=== PATIENT | male | born 1965 | race Caucasian/White ===

== ENCOUNTER 2016-10-05 14:27 | Emergency (ER) | payer SELFPAY ==
[~2016-10-05] VITALS: Ht 188 cm; Wt 149.1 kg
[~2016-10-05 14:27] MED LIST: AUGMENTIN875 MG PO; AZITHROMYCIN250 MG1 PO; COMBIVENT200 INHALA IH; HYDROCHLOROTHIA25 MG PO; HYDROCODON-ACE1 EAC7 PO; NAPROSYN500 MG PO; NOHOMEMEDS; PERCOCET 5-3251 EACH PO; PREDNISONE20 MG PO; PROAIR HFA8.5 GM IH; SUBOXONE 8 M1 TABLET SL; SUBOXONE 8 MG-1 EAC2 SL; ZOFRAN ODT4 MG PO
[2016-10-05 15:19] LABS: HEMATOCRIT 47.3 % (38.0-50.0); MCH 28.6 PG (29.0-34.0); MCHC 33.4 G/DL (30.0-36.0); MCV 85.5 FL (86-99); MEAN PLAT.VOLUME 10.4 uM^3 (9.0-12.4); PLATELET COUNT 253 K/uL (156-360); RBC DIS.WIDTH-CV 13.3 % (11.8-14.6); RBC DIS.WIDTH-SD 41.9 % (39-53); RED BLOOD COUNT 5.53 M/uL (4.00-5.50)
[2016-10-05 15:21] LABS: CHLORIDE 105 mEq/L (99-109); POTASSIUM 4.4 mEq/L (3.7-5.4); SODIUM 138 mEq/L (136-147)
[2016-10-05 15:23] LABS: GLUCOSE 108 mg/dL (70-99)
[2016-10-05 15:24] LABS: ANION GAP 7 MEQ/L (2-14)
[2016-10-05 15:25] LABS: TOTAL BILIRUBIN 0.4 mg/dL (0.0-1.0)
[2016-10-05 15:27] LABS: ALKALINE PHOSPHATASE 82 IU/L (3-129); GFR ESTIMATE (CALCULATED) > 59 mL/min/
[2016-10-05 15:28] LABS: ADD MIUA? NO; BILIRUBIN NEGATIVE; BLOOD NEGATIVE; COLOR YELLOW ((YELLOW)); GLUCOSE (STRIP) NEGATIVE; KETONES 5; LEUKOCYTES NEGATIVE; NITRITE NEGATIVE; PROTEIN (STRIP) 30; SPECIFIC GRAVITY 1.019 (1.000-1.030); UCUL ADDED? NO; UROBILINOGEN 0.2 MG/DL (0.2-1.0)
[2016-10-05 15:28] LABS: UREA NITROGEN (BUN) 16 mg/dL (9-23)
[2016-10-05 20:09] VITALS: BP 154/93
== END 2016-10-05 20:10 | disposition home or self-care (01) ==
LOC: EME 14:27
DX: K42.9 Umbilical hernia without obstruction or gangrene (principal); R10.32 Left lower quadrant pain; G89.29 Other chronic pain; F17.200 Nicotine dependence, unspecified, uncomplicated; I10 Essential (primary) hypertension
CPT/HCPCS: 74176; 80053; 81003; 85027; 99281; 99283

== ENCOUNTER 2016-10-26 14:04 | Emergency (ER) | payer SELFPAY ==
[~2016-10-26] VITALS: Ht 188 cm; Wt 149.8 kg
[2016-10-26 15:07] LABS: HEMATOCRIT 44.3 % (38.0-50.0); MCH 28.5 PG (29.0-34.0); MCHC 33.2 G/DL (30.0-36.0); MCV 85.9 FL (86-99); MEAN PLAT.VOLUME 10.5 uM^3 (9.0-12.4); PLATELET COUNT 215 K/uL (156-360); RBC DIS.WIDTH-CV 13.5 % (11.8-14.6); RBC DIS.WIDTH-SD 42.8 % (39-53); RED BLOOD COUNT 5.16 M/uL (4.00-5.50); WHITE BLOOD COUNT 8.6 K/uL (4.1-10.2)
[2016-10-26 15:16] LABS: CHLORIDE 107 mEq/L (99-109); SODIUM 143 mEq/L (136-147)
[2016-10-26 15:18] LABS: GLUCOSE 111 mg/dL (70-99)
[2016-10-26 15:19] LABS: ANION GAP 10 MEQ/L (2-14)
[2016-10-26 15:21] LABS: GFR ESTIMATE (CALCULATED) > 59 mL/min/
[2016-10-26 15:22] LABS: UREA NITROGEN (BUN) 12 mg/dL (9-23)
[2016-10-26 15:28] LABS: TROP-I INTERPRETATION NEGATIVE; TROPONIN-I < 0.01 ng/mL (0.0-0.30)
[2016-10-26] MEDS ORDERED: PREDNISONE20 MG PO (15:38)
[2016-10-26] MEDS ORDERED: VENTOLIN HFA18 GM IH (15:38)
[2016-10-26 15:51] VITALS: BP 158/94
== END 2016-10-26 15:52 | disposition home or self-care (01) ==
LOC: EME 14:04
DX: J45.901 Unspecified asthma with (acute) exacerbation (principal); F17.210 Nicotine dependence, cigarettes, uncomplicated
CPT/HCPCS: 71020; 80048; 84484; 85027; 93005; 94640; 99281; 99283; J7512

== ENCOUNTER 2017-01-26 13:35 | Inpatient (IN) | payer SELFPAY ==
[~2017-01-26] VITALS: Ht 185.4 cm; Wt 149.0 kg
[~2017-01-26 13:35] MED LIST changes: +VENTOLIN HFA18 GM IH
[2017-01-26 16:00] LABS: BASOPHIL COUNT 0.1 K/uL (0-0.1); EOSINOPHIL (%) 0.8 % (0-5); EOSINOPHIL COUNT 0.2 K/uL (0-0.3); HEMATOCRIT 41.8 % (38.0-50.0); IMMATURE GRANULOCYTE (%) 0.4 % (0.0-0.7); IMMATURE GRANULOCYTE COUNT 0.1 K/uL; INSTRUMENT ABS NEUTROPHIL CT 16.1 K/uL; LYMPHOCYTE COUNT 1.3 K/uL (1.0-2.8); MCHC 33.3 G/DL (30.0-36.0); MCV 87.3 FL (86-99); MEAN PLAT.VOLUME 10.5 uM^3 (9.0-12.4); MONOCYTE (%) 7.6 % (3-12); MONOCYTE COUNT 1.5 K/uL (0-0.8); NEUTROPHIL (%) 84.3 % (45-76); NEUTROPHIL COUNT 16.1 K/uL (1.8-6.4); PLATELET COUNT 204 K/uL (156-360); RBC DIS.WIDTH-CV 13.3 % (11.8-14.6); RBC DIS.WIDTH-SD 43.1 % (39-53); RED BLOOD COUNT 4.79 M/uL (4.00-5.50)
[2017-01-26 16:13] LABS: CHLORIDE 105 mEq/L (99-109); POTASSIUM 4.2 mEq/L (3.7-5.4); SODIUM 140 mEq/L (136-147)
[2017-01-26 16:15] LABS: GLUCOSE 102 mg/dL (70-99)
[2017-01-26 16:17] LABS: ANION GAP 9 MEQ/L (2-14); TOTAL BILIRUBIN 0.5 mg/dL (0.0-1.0)
[2017-01-26 16:19] LABS: ALKALINE PHOSPHATASE 79 IU/L (3-129); GFR ESTIMATE (CALCULATED) > 59 mL/min/
[2017-01-26 16:20] LABS: UREA NITROGEN (BUN) 11 mg/dL (9-23)
[2017-01-26 16:22] LABS: LIPASE 17 U/L (1.0-51.0)
[2017-01-26] MEDS ORDERED: ONE-A-DAY MEN'1 EACH PO (18:52)
[2017-01-26] MEDS ORDERED: ADVIL200 MG PO (18:52)
[2017-01-26] MEDS ORDERED: BUPRENORPHINE HC8 MG PO (18:54)
[2017-01-26 21:20] VITALS: BP 184/91
[2017-01-27 00:10] VITALS: BP 143/99
[2017-01-27 08:00] VITALS: BP 160/91
[2017-01-27 14:13] LABS: HEMATOCRIT 40.9 % (38.0-50.0); MCH 28.9 PG (29.0-34.0); MCHC 33.3 G/DL (30.0-36.0); MCV 86.8 FL (86-99); MEAN PLAT.VOLUME 10.5 uM^3 (9.0-12.4); PLATELET COUNT 200 K/uL (156-360); RBC DIS.WIDTH-CV 13.2 % (11.8-14.6); RED BLOOD COUNT 4.71 M/uL (4.00-5.50)
[2017-01-27 14:27] LABS: ANION GAP 5 MEQ/L (2-14); CHLORIDE 106 MEQ/L (99-109); POTASSIUM 3.8 MEQ/L (3.7-5.4); SAMPLE HEMOLYSIS CHECK 0; SAMPLE ICTERIC CHECK 0; SAMPLE LIPEMIA CHECK 0; SODIUM 139 MEQ/L (136-147)
[2017-01-27 14:33] LABS: GFR ESTIMATE (CALCULATED) > 59 mL/min/; GLUCOSE 94 mg/dL (70-99); UREA NITROGEN (BUN) 9 mg/dL (9-23)
[2017-01-27 15:36] VITALS: BP 169/100
[2017-01-27 23:28] VITALS: BP 136/78
[2017-01-28 08:22] VITALS: BP 142/84
[2017-01-28 15:24] VITALS: BP 157/85
[2017-01-28 23:23] VITALS: BP 147/73
[2017-01-29 06:48] VITALS: BP 138/90
[2017-01-29] MEDS ORDERED: NORCO 5/3251 TABLET PO (14:31)
== END 2017-01-29 15:13 | disposition home or self-care (01) | DRG 394 ==
LOC: EME 13:35 → EDOF 17:59 → 5EAST 17:59 → ENRESERV 18:03 → 5EAST 21:07 → ENPENDDIS 01-29 → 5EAST 01-29 15:13
PROVIDERS: Emergency Medicine; Thoracic Surgery (Cardiothoracic Vascular Surgery)
DX: K43.6 Other and unspecified ventral hernia with obstruction, without gangrene (principal); F11.20 Opioid dependence, uncomplicated; I10 Essential (primary) hypertension; F17.210 Nicotine dependence, cigarettes, uncomplicated; F32.9 Major depressive disorder, single episode, unspecified; E66.9 Obesity, unspecified; Z68.41 Body mass index [BMI] 40.0-44.9, adult; Z91.19 Patient's noncompliance with other medical treatment and regimen; Z91.14 Patient's other noncompliance with medication regimen
CPT/HCPCS: 74177; 80048; 80053; 81003; 83605; 83690; 85025; 85027; 99281; 99285; J1644; J3010; J7030; J7120

== ENCOUNTER 2017-05-13 11:50 | Day surgery (SDC) | payer OTHER ==
[~2017-05-13] VITALS: Ht 188 cm; Wt 154.5 kg
[~2017-05-13 11:50] MED LIST changes: +ADVIL200 MG PO; +BUPRENORPHINE HC8 MG PO; +COZAAR50 MG PO; +NORCO 5/3251 TABLET PO; +ONE-A-DAY MEN'1 EACH PO
[2017-05-13 12:14] VITALS: BP 172/99
[2017-05-13] MEDS ORDERED: ENDOCET 5-3251 EACH PO (17:05)
[2017-05-13] MEDS ORDERED: COLACE100 MG PO (17:05)
[2017-05-13 19:10] VITALS: BP 128/74
[2017-05-13 23:20] VITALS: BP 137/80
[2017-05-14 03:17] VITALS: BP 143/91
[2017-05-14 07:26] VITALS: BP 146/80
[2017-05-14 11:15] VITALS: BP 150/82
[2017-05-14 15:36] VITALS: BP 162/92
== END 2017-05-14 17:14 | disposition home or self-care (01) ==
LOC: SDC 11:50 → ENRESERV 17:15 → 2SOUTH 17:17 → 2EAST 17:17 → ENRESERV 17:53 → 2EAST 18:10
PROC: 0WUF0JZ Supplement Abdominal Wall with Synthetic Substitute, Open Approach (ICD-10-PCS; principal; 2017-05-13)
DX: K43.6 Other and unspecified ventral hernia with obstruction, without gangrene (principal); D72.829 Elevated white blood cell count, unspecified; I10 Essential (primary) hypertension; E66.01 Morbid (severe) obesity due to excess calories; Z68.41 Body mass index [BMI] 40.0-44.9, adult; F17.200 Nicotine dependence, unspecified, uncomplicated; F19.90 Other psychoactive substance use, unspecified, uncomplicated
CPT/HCPCS: 87641; 88302; 93005; 94799; C1781; G0378; J0131; J0690; J0696; J1170; J1885; J2250; J2405; J2710; J3010; J7120